=== PATIENT | female | born 1985 | race American Indian/Alaskan Native ===

== ENCOUNTER 2018-06-08 07:17 | Emergency (ER) | payer OTHER ==
--- NOTE | 2018-06-08 08:52 | ED PDOC ---
HPI: Back Time Seen by Provider: 06/08/18 07:38 Chief Complaint (Nursing): Back Pain Chief Complaint (Provider): Back Pain History Per: Patient History/Exam Limitations: no limitations Onset/Duration Of Symptoms: Days Additional Complaint(s): 33 year old female with no past medical history who is presenting to the ED for evaluation of constant back pain ongoing for 2 weeks. Patient states that pain is worse with movement and reports a history of kidney stones. She admits that this pain is similar to the pain when she had kidney stones and states that she has been medicating at home with Motrin. Patient reports that she took alieve last night and denies taking any drugs today. She also denies any urinary symptoms, fevers, nausea, vomiting, or diarrhea. PMD: Latoya Logan Past Medical History Reviewed: Historical Data, Nursing Documentation, Vital Signs - Medical History PMH: No Chronic Diseases - Surgical History Surgical History: (x 1) - Family History Family History: States: Unknown Family Hx - Social History Current smoker - smoking cessation education provided: No Alcohol: None Drugs: Denies - Home Medications Home Medications: Ambulatory Orders Medication Instructions Recorded Tamsulosin [Flomax] 0.4 mg PO DAILY #7 cap 04/10/16 oxyCODONE/Acetaminophen [Percocet 1 ea PO Q6 PRN #10 tab 04/10/16 5/325 mg Tab] Ibuprofen [Motrin] 600 mg PO Q6H PRN #20 tab 06/08/18 - Allergies Allergies/Adverse Reactions: Allergies Allergy/AdvReac Type Severity Reaction Status Date / Time No Known Allergies Allergy Verified 04/09/16 23:03 Review of Systems ROS Statement: Except As Marked, All Systems Reviewed And Found Negative Constitutional: Negative for: Fever Gastrointestinal: Negative for: Nausea, Vomiting, Diarrhea Genitourinary Female: Negative for: Dysuria, Frequency, Hematuria Musculoskeletal: Positive for: Back Pain Physical Exam - Reviewed Nursing Documentation Reviewed: Yes Vital Signs Reviewed: Yes - Physical Exam Appears: Positive for: Non-toxic, No Acute Distress Head Exam: Positive for: ATRAUMATIC, NORMAL INSPECTION, NORMOCEPHALIC Skin: Positive for: Normal Color, Warm, DRY Eye Exam: Positive for: Normal appearance Neck: Positive for: Normal, Painless ROM Cardiovascular/Chest: Positive for: Regular Rate, Rhythm Respiratory: Positive for: Normal Breath Sounds. Negative for: Respiratory Distress Gastrointestinal/Abdominal: Positive for: Normal Exam, Soft. Negative for: Tenderness Back: Positive for: Normal Inspection. Negative for: L CVA Tenderness, R CVA Tenderness, Vertebral Tenderness, Other (hematoma ) Extremity: Positive for: Normal ROM. Negative for: Deformity, Swelling Neurological/Psych: Positive for: Awake, Alert, Normal Tone, Oriented. Negative for: Motor/Sensory Deficits - Laboratory Results Result Diagrams: 06/08/18 08:55 06/08/18 08:55 Medical Decision Making Medical Decision Making: Time: 8:42 Plan: --CMP --ED Urine Dipstick --CBC --X-Ray LS Spine AP/LAT --Renal Ultrasound Lumbar Spine X-Ray: FINDINGS: BONES: Normal alignment. No listhesis. No fracture. 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 DISC SPACES: Unremarkable. OTHER FINDINGS: Probable minimal iliac sided sacroiliac sclerotic arthrosis. Stool retention IMPRESSION: No fracture dislocation. Right-sided facet hypertrophic arthrosis suggestedOther findings as above. Renal Ultrasound: FINDINGS: RIGHT KIDNEY: Measures: 12.0 x 4.9 x 4.6 cm. Normal in size, contour and echogenicity. No gross stone or mass apparent. In the region of the right intrarenal collecting system there is fullness. This however appears to fill with color its prominent vessels. No Doppler spectral waveforms noted. LEFT KIDNEY: Measures: 12.5 x 5.7 x 4.3 cm. Normal in size, contour and echogenicity. No stone, solid mass lesion or hydronephrosis visualized. Color Doppler appears show most of the tubular structures in the intrarenal pelvis corresponding to flow. OTHER FINDINGS: None. IMPRESSION: No shadowing calculi seen. The fullness particularly region of the right intrarenal pelvis appears to be related on these images to prominent color flow in vessels showed no Doppler waveforms here are noted. The prior 04/10/2016 CT study suggesting fullness asymmetric on the right collecting system due to a distal obstructing calculus is noted. If further evaluation is needed consider CT of the abdomen and pelvis without IV or oral contrast for further evaluation. 12:33 Patient's potassium is a little low and sugar is a little high. There is no blood in the urine and patient is feeling much better. She will be discharged home. Scribe Attestation: Documented by Samantha Roper, acting as a scribe for Malik Padron MD. Provider Scribe Attestation: All medical record entries made by the Scribe were at my direction and personally dictated by me. I have reviewed the chart and agree that the record accurately reflects my personal performance of the history, physical exam, medical decision making, and the department course for this patient. I have also personally directed, reviewed, and agree with the discharge instructions and disposition. Disposition - Clinical Impression Clinical Impression: Back pain - Disposition Condition: IMPROVED Additional Instructions: follow up with your doctor in 1-2 days for reevaluation return to the ED with any worsening or concerning symptoms Prescriptions: Ibuprofen [Motrin] 600 mg PO Q6H PRN #20 tab PRN Reason: Pain, Moderate (4-7) Instructions: Low Back Pain in Adults Forms: [employer] (Indonesian)
[2018-06-08 09:10] LABS: BASO # 0.1 K/uL (0.0-0.2); BASO % 0.7 % (0.0-2.0); EOS # 0.1 K/uL (0.0-0.7); EOS % 1.6 % (0.0-4.0); HEMOGLOBIN 11.5 g/dL (12.0-16.0); MEAN CELL VOLUME 76.2 fl (81.0-99.0); MEAN CORPUSCULAR HEMOGLOBIN 24.4 pg (27.0-31.0); MEAN PLATELET VOLUME 8.2 fl (7.2-11.7); MONO # 0.7 K/uL (0.0-0.8); MONO % 7.2 % (0.0-10.0); NEUT # 6.3 K/uL (1.8-7.0); NEUT % 68.5 % (50.0-75.0); RBC 4.73 Mil/uL (3.80-5.20); RED CELL DISTRIBUTION WIDTH 16.2 % (11.5-14.5); WHITE BLOOD COUNT 9.2 K/uL (4.8-10.8)
[2018-06-08 09:15] LABS: ALB/GLOB RATIO 1.1 (1.0-2.1); ALBUMIN 4.2 g/dL (3.5-5.0); ALT/SGPT 27 U/L (9-52); AST/SGOT 21 U/L (14-36); BLOOD UREA NITROGEN 7 mg/dl (7-17); CALCIUM 9.3 mg/dL (8.4-10.2); GFR NON-AFRICAN AMERICAN > 60
--- NOTE | 2018-06-08 09:55 | RAD ---
Date of service: 06/08/2018 PROCEDURE: Radiographs of the Lumbar Spine. HISTORY: back pain COMPARISON: No prior. TECHNIQUE: 5 views obtained. FINDINGS: BONES: Normal alignment. No listhesis. No fracture. 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 DISC SPACES: Unremarkable. OTHER FINDINGS: Probable minimal iliac sided sacroiliac sclerotic arthrosis. Stool retention IMPRESSION: No fracture dislocation. Right-sided facet hypertrophic arthrosis suggestedOther findings as above.
--- NOTE | 2018-06-08 11:33 | US ---
Date of service: 06/08/2018 PROCEDURE: Ultrasound of the Kidneys HISTORY: flank pain COMPARISON: None available. TECHNIQUE: Sonogram of the kidneys. FINDINGS: RIGHT KIDNEY: Measures: 12.0 x 4.9 x 4.6 cm. Normal in size, contour and echogenicity. No gross stone or mass apparent. In the region of the right intrarenal collecting system there is fullness. This however appears to fill with color its prominent vessels. No Doppler spectral waveforms noted. LEFT KIDNEY: Measures: 12.5 x 5.7 x 4.3 cm. Normal in size, contour and echogenicity. No stone, solid mass lesion or hydronephrosis visualized. Color Doppler appears show most of the tubular structures in the intrarenal pelvis corresponding to flow. OTHER FINDINGS: None. IMPRESSION: No shadowing calculi seen. The fullness particularly region of the right intrarenal pelvis appears to be related on these images to prominent color flow in vessels showed no Doppler waveforms here are noted. The prior 04/10/2016 CT study suggesting fullness asymmetric on the right collecting system due to a distal obstructing calculus is noted. If further evaluation is needed consider CT of the abdomen and pelvis without IV or oral contrast for further evaluation.
[2018-06-08] MEDS ORDERED: Potassium Chloride 20 mEq ER Tab PO ONE (12:34)
[2018-06-08] MEDS: Potassium Chloride 20 mEq ER Tab PO ONE (12:36)
[2018-06-08 13:10] VITALS: RESP 18; TEMP 98.6; O2SAT 99
[2018-06-08 13:13] VITALS: BP 149/88; PULSE 80
== END 2018-06-08 12:50 | disposition home or self-care (01) ==
LOC: H.ER 07:17
DX: M54.9 Dorsalgia, unspecified (principal)
CPT/HCPCS: 72100; 76770; 80053; 81025; 82948; 85025; 99284; J1885